=== PATIENT | female | born 1985 | race Two or more races ===

== ENCOUNTER 2017-10-09 12:48 | Emergency (ER) | payer OTHER ==
[2017-10-09 12:52] VITALS: PULSE 80; TEMP 98.3; BMI 23.3
--- NOTE | 2017-10-09 13:17 | PDOC ---
History of Present Illness - General Chief Complaint: Pain Stated Complaint: ABD PAIN Time Seen by Provider: 10/09/17 13:16 - History of Present Illness Initial Comments: 31 year old healthy female with history of caesarean section x2 presenting with lower abdominal pain and bloating for the past day. She states that she was sitting yesterday in her home and felt an achy lower abdominal/ pelvic pain that was occasionally sharp in nature and worse with movement and walking but improved after passing gas. She also states that her bloating improves with flatulation. Denies nausea, vomiting, diarrhea, constipaton, urinary symptoms, dyspareunia, cough, fever, chills, annorexia, delayed menses, or other sick symptoms. Her LMP was 09/18/17 and she is on OCPs. She saw her wool scourer in June and had a negative pap smear. Agustin siegel have history of fibroids or ovarian pathology. Her wool scourer is Eileen Danielle. 10/09/17 13:37 Past History - Past Medical History Allergies/Adverse Reactions: Allergies Allergy/AdvReac Type Severity Reaction Status Date / Time No Known Allergies Allergy Verified 10/09/17 12:52 Home Medications: Ambulatory Orders Norgestimate-Ethinyl Estradiol [Tri-Sprintec Tablet] 1 each PO DAILY 10/09/17 COPD: No - Family Disease History Family Disease History: Diabetes: Grandparents, Heart Disease: Grandparents - Reproductive History Is Patient Now?: No (#): 2 Para: 1 - Suicide/Smoking/Psychosocial Hx Smoking History: Never smoked Hx Alcohol Use: No Drug/Substance Use Hx: No Substance Use Type: None Hx Substance Use Treatment: No Review of Systems - Review of Systems Constitutional: No: Chills, Diaphoresis, Fever, Weakness HEENTM: No: Blurred Vision Respiratory: No: Cough, Shortness of Breath, Wheezing Cardiac (ROS): No: Chest Pain ABD/GI: No: Constipated, Diarrhea, Nausea, Vomiting : No: Burning, Dysuria Musculoskeletal: No: Back Pain Integumentary: No: Change in Color, Erythema Neurological: No: Headache *Physical Exam - Vital Signs Last Vital Signs Temp Pulse Resp BP Pulse Ox 98.3 F 80 20 122/72 99 10/09/17 12:50 10/09/17 12:50 10/09/17 12:50 10/09/17 12:50 10/09/17 12:50 - Physical Exam General Appearance: Yes: Appropriately Dressed. No: Apparent Distress HEENT: positive: EOMI, ISH, Normal Voice Neck: positive: Trachea midline, Normal Thyroid, Supple. negative: Tender, Rigid Respiratory/Chest: positive: Lungs Clear, Normal Breath Sounds. negative: Chest Tender, Respiratory Distress, Accessory Muscle Use Cardiovascular: positive: Regular Rhythm, Regular Rate Gastrointestinal/Abdominal: positive: Normal Bowel Sounds, Tender (RLQ tendeneress to palpation and LUQ tenderness to palpation. No pelvic tenderness to palpation), Flat, Soft Musculoskeletal: positive: Normal Inspection Extremity: positive: Normal Capillary Refill, Normal Inspection, Normal Range of Motion. negative: Tender Integumentary: positive: Normal Color, Dry, Warm Neurologic: positive: Fully Oriented, Alert, Normal Mood/Affect, Normal Response ED Treatment Course - LABORATORY CBC & Chemistry Diagram: 10/09/17 13:44 10/09/17 13:44 Medical Decision Making - Medical Decision Making 31 year old previously healthy female presenting with RLQ tenderness to palpation without GI or urinary symptoms. Highest on the list is some gynecologic pathology including ovarian cyst or uterine lesion. Also of concern could be urinary infection or appendicitis given location of complaints and [place] geography but patient has no GI complaints and pain is not related to eating. Will get CBC, CMP, lipase, upreg, and transvaginal US + RLQ ultrasound to evaluate gyncologic anatomy and rule out appendicitis. 10/09/17 15:02 Labs WNL, pending Ultrasound but pain improved after Maalox and famotidine. 10/09/17 16:19 US negative and pain still improved. Will DC with GI follow up for IBS workup and pepcid two week prescription. 10/09/17 16:39 *DC/Admit/Observation/Transfer Diagnosis at time of Disposition: Abdominal pain Qualifiers: Abdominal location: right lower quadrant Qualified Code(s): R10.31 - Right lower quadrant pain - Discharge Dispostion Disposition: HOME Condition at time of disposition: Improved Admit: No - Referrals Referrals: Guillaume Vega MD [Staff Physician] - - Patient Instructions Printed Discharge Instructions: DI for Abdominal Pain-Adult Additional Instructions: We looked at your blood labs and took an ultrasound of your pelvis. There does not appear to be anything wrong with your appendix, ovaries, uterus. We believe you need to see a paid intern for IBS workup. Please follow up with Dr. Vega. You can use pepcid for your abdominal pain until you see your GI doctor. Please return if your abdominal pain gets worse, you get fevers, chills , or worsening symptoms. - Post Discharge Activity
[2017-10-09] MEDS ORDERED: MAG HYDROX/AL HYDROX/SIMETH 355 ML ORAL.SUSP PO ONE (13:27)
--- NOTE | 2017-10-09 13:28 | PDOC ---
Attending Attestation - HPI HPI: 10/09/17 13:58 The patient is a 31 year old female with a significant PMH of 2x C-sections who presents to the emergency department with pelvic and lower abdominal pain beginning approximately 3 days ago. The patient reports having previous episodes of lower abdominal pain. The patient denies any vaginal discharge or bleeding. The patient denies chest pain, shortness of breath, headache and dizziness. Denies fever, chills, nausea, vomit, diarrhea and constipation. Denies dysuria, frequency, urgency and hematuria. Allergies: NKA - Physicial Exam PE: 10/09/17 13:58 GENERAL: Awake, alert, and fully oriented, in no acute distress HEAD: No signs of trauma EYES: PERRLA, EOMI, sclera anicteric, conjunctiva clear ENT: Auricles normal inspection, hearing grossly normal, nares patent, oropharynx clear without exudates. Moist mucosa NECK: Normal ROM, supple, no lymphadenopathy, JVD, or masses LUNGS: Breath sounds equal, clear to auscultation bilaterally. No wheezes, and no crackles HEART: Regular rate and rhythm, normal S1 and S2, no murmurs, rubs or gallops ABDOMEN: Soft, nontender, normoactive bowel sounds. No guarding, no rebound. No masses PELVIC: (+) Left and right sided pelvic tenderness. EXTREMITIES: Normal range of motion, no edema. No clubbing or cyanosis. No cords, erythema, or tenderness NEUROLOGICAL: Cranial nerves II through XII grossly intact. Normal speech, normal gait SKIN: Warm, Dry, normal turgor, no rashes or lesions noted. <Dusty Armstrong - Last Filed: 10/09/17 14:00> - Resident Resident Name: Anitra Hatch - ED Attending Attestation I have performed the following: I have examined & evaluated the patient, The case was reviewed & discussed with the resident, I agree w/resident's findings & plan, Exceptions are as noted - Medical Decision Making 10/09/17 13:28 I, Dr. Kaitlin Stone, DO, attest that this document has been prepared under my direction and personally reviewed by me in its entirety. I further attest, that it accurately reflects all work, treatment, procedures and medical decision -making performed by me. 10/09/17 15:59 a/p: 31yo female with abd pain -lower pelvic pain on exam, but denies vaginal complaints -no Gi, , vaginal complaints other than pain -will check labs, pelvic u/s and appy ultrasound -plan discussed with the patient that she may need outpt follow up with GI -pt agrees with the plan. 10/09/17 16:00 unable to visualize appy no fevers no elevated wbc normal ovaries on ultrasound CMP pending 10/09/17 16:38 ultrasounds reviewed, no acute pathology, unable to visualize appendix but low risk for appendicitis. given close precautions. labs reviewed. normal labs. clean urine. pain improved with GI cocktail stable for d/c to home <Kaitlin Stone - Last Filed: 10/09/17 16:38>
[2017-10-09] MEDS ORDERED: ACETAMINOPHEN 325 MG TABLET (FP) PO ONE (13:31)
[2017-10-09] MEDS ORDERED: FAMOTIDINE IV 20 MG/12 ML VIAL IVPB ONE (13:31)
[2017-10-09 14:10] LABS: BASOPHIL 0.5 % (0-2.0); EOSINOPHIL 3.7 % (0-4.5); MCH 29.6 pg (25.7-33.7); MCHC 33.8 g/dl (32.0-36.0); MEAN CELL VOLUME 87.3 fl (80-96); MEAN PLT VOLUME 7.9 fl (7.5-11.1); PLATELET COUNT 291 K/MM3 (134-434); RDW 12.6 % (11.6-15.6)
[2017-10-09] MEDS ORDERED: MAG HYDROX/AL HYDROX/SIMETH 30 ML UNIT-DOSE CUP ONE (14:11)
[2017-10-09] MEDS ORDERED: ACETAMINOPHEN 325 MG TABLET (FP) ONE (14:11)
[2017-10-09] MEDS ORDERED: FAMOTIDINE 20 MG/50 ML IVPB 20 MG/50 ML MG IVPB ONE (14:11)
[2017-10-09 14:20] LABS: URINE APPEARANCE CLEAR; URINE BILIRUBIN NEGATIVE (NEGATIVE); URINE BLOOD NEGATIVE (NEGATIVE); URINE COLOR STRAW; URINE GLUCOSE (UA) NEGATIVE (NEGATIVE); URINE KETONE NEGATIVE (NEGATIVE); URINE LEUK ESTERASE NEGATIVE (NEGATIVE); URINE NITRITE NEGATIVE (NEGATIVE); URINE PROTEIN NEGATIVE (NEGATIVE); URINE UROBILINOGEN NEGATIVE mg/dL (0.2-1.0)
[2017-10-09 16:02] LABS: ALBUMIN 3.9 g/dl (3.4-5.0); ALK PHOS 66 U/L (45-117); ANION GAP 10 (8-16); BILIRUBIN,TOTAL 0.2 mg/dL (0.2-1.0); CO2 25 mmol/L (21-32); CREATININE 0.5 mg/dL (0.55-1.02); GLUCOSE,RANDOM 129 mg/dL (74-106); SGOT/AST 16 U/L (15-37); SGPT/ALT 20 U/L (12-78); TOT PROT 7.2 g/dl (6.4-8.2)
[2017-10-09 17:11] VITALS: BP 120/70
[2017-10-09 18:40] LABS: URINE LEUK ESTERASE Negative (NEGATIVE)
== END 2017-10-09 17:12 | disposition home or self-care (01) ==
LOC: JER 12:48
PROC: 3E033GC Introduction of Other Therapeutic Substance into Peripheral Vein, Percutaneous Approach (ICD-10-PCS; principal; 2017-10-09)
DX: R10.31 Right lower quadrant pain (principal)
CPT/HCPCS: 36415; 76830-TC; 76856-TC; 80053; 81003; 83690; 84703; 85025; 99284-25

== ENCOUNTER 2017-11-06 21:22 | Emergency (ER) | payer OTHER ==
[2017-11-06 22:16] VITALS: BP 128/81; PULSE 78; TEMP 98; BMI 23.1
== END 2017-11-06 22:26 | disposition left against medical advice (07) ==
LOC: JER 21:22
DX: Z53.21 Procedure and treatment not carried out due to patient leaving prior to being seen by health care provider (principal)
CPT/HCPCS: 99281-25

== ENCOUNTER 2018-10-15 08:40 | Emergency (ER) | payer OTHER ==
[2018-10-15 08:59] VITALS: BMI 23.3
--- NOTE | 2018-10-15 09:13 | PDOC ---
*Physical Exam - Vital Signs Last Vital Signs Temp Pulse Resp BP Pulse Ox 98.2 F 109 H 16 96/68 100 10/15/18 08:57 10/15/18 08:57 10/15/18 08:57 10/15/18 08:57 10/15/18 08:57 ED Treatment Course - LABORATORY CBC & Chemistry Diagram: 10/15/18 09:50 10/15/18 09:50 Medical Decision Making - Medical Decision Making 10/15/18 09:13 Pt seen by Midlevel Provider under my direct supervision Ancillary studies reviewed I agree with plan as outlined by Midlevel Provider *DC/Admit/Observation/Transfer Diagnosis at time of Disposition: Abdominal pain, Nausea - Discharge Dispostion Disposition: HOME Condition at time of disposition: Improved - Prescriptions Prescriptions: Ondansetron HCl [Zofran] 4 mg PO TID PRN #12 tablet PRN Reason: Nausea And/Or Vomiting - Referrals - Patient Instructions Printed Discharge Instructions: DI for Abdominal Pain-Adult Additional Instructions: Please take Zofran as needed for nausea. If your symptoms of abdominal pain, fever, chills , or inability to tolerate by mouth occurs, please return to ED immediately. Otherwise eat a bland diet for the next 72 hours. - Post Discharge Activity
[2018-10-15] MEDS ORDERED: ONDANSETRON 4 MG/2 ML VIAL IVPUSH ONE (09:19)
[2018-10-15] MEDS ORDERED: SODIUM CHLORIDE 1,000 ML IV STA (09:19)
[2018-10-15] MEDS ORDERED: KETOROLAC TROMETHAMINE 30 MG/1 ML VIAL IVPUSH ONE (09:19)
[2018-10-15] MEDS ORDERED: ONDANSETRON 4 MG/2 ML VIAL ONE (09:39)
[2018-10-15] MEDS ORDERED: KETOROLAC TROMETHAMINE 30 MG/1 ML VIAL ONE (09:39)
--- NOTE | 2018-10-15 10:06 | PDOC ---
History of Present Illness - General Chief Complaint: Nausea Stated Complaint: ABD PAIN Time Seen by Provider: 10/15/18 09:07 History Source: Patient Exam Limitations: No Limitations - History of Present Illness Travel History: No Initial Comments: 10/15/18 10:00 32-year-old female presents to ED with complaints of nausea vomiting diarrhea along with lower abdominal cramping for the past 2 days. Patient states no recent travel or recent illness and states menstrual cycle is regular. Patient has no urinary complaints and states has been unable to tolerate anything by mouth including liquids. Patient states symptoms began Saturday night after having packaged salad mix which was also shared with her who does not complain of similar symptoms. Timing/Duration: reports: constant Quality: reports: mild, cramping Abdominal Pain Onset Location: reports: RLQ, LLQ Pain Radiation: reports: no radiation Activities at Onset: reports: eating Aggravating Factors: improves with: None Alleviating Factors: improves with: None Past History - Travel Traveled outside of the country in the last 30 days: No Close contact w/someone who was outside of country & ill: No - Past Medical History Allergies/Adverse Reactions: Allergies Allergy/AdvReac Type Severity Reaction Status Date / Time No Known Allergies Allergy Verified 10/15/18 08:55 Home Medications: Ambulatory Orders NK [No Known Home Medication] 10/15/18 COPD: No - Family Disease History Family Disease History: Diabetes: Grandparents, Heart Disease: Grandparents - Reproductive History (#): 2 Para: 1 - Suicide/Smoking/Psychosocial Hx Smoking History: Never smoked Have you smoked in the past 12 months: No Information on smoking cessation initiated: No Hx Alcohol Use: No Drug/Substance Use Hx: No Substance Use Type: None Hx Substance Use Treatment: No Patient Lives Alone: No Lives with/in: spouse/SO Abd/GI Specific PMHX - Complaint Specific PMHX Colitis: No GERD: No Review of Systems - Review of Systems Able to Perform ROS?: Yes Constitutional: Yes: Malaise, Weakness HEENTM: No: Symptoms Reported Respiratory: No: Symptoms reported Cardiac (ROS): No: Symptoms Reported ABD/GI: Yes: Diarrhea, Nausea, Poor Appetite, Poor Fluid Intake, Vomiting, Abdominal cramping : No: Symptoms Reported Musculoskeletal: No: Symptoms Reported Integumentary: No: Symptoms Reported Neurological: No: Symptoms reported *Physical Exam - Vital Signs Last Vital Signs Temp Pulse Resp BP Pulse Ox 98.2 F 109 H 16 96/68 100 10/15/18 08:57 10/15/18 08:57 10/15/18 08:57 10/15/18 08:57 10/15/18 08:57 - Physical Exam General Appearance: Yes: Nourished, Appropriately Dressed. No: Apparent Distress HEENT: positive: EOMI, ISH, TMs Normal, Pharynx Normal (dry). negative: Pale Conjunctivae Neck: positive: Supple Respiratory/Chest: positive: Lungs Clear, Normal Breath Sounds. negative: Respiratory Distress, Accessory Muscle Use Cardiovascular: positive: Regular Rhythm, Tachycardia. negative: Murmur Gastrointestinal/Abdominal: positive: Normal Bowel Sounds, Soft, Tenderness ( moderate left lower quadrant, mild right lower quadrant). negative: Distended , Guarding, Rebound Musculoskeletal: negative: CVA Tenderness Extremity: positive: Normal Capillary Refill. negative: Pedal Edema Integumentary: positive: Normal Color, Warm, Moist Neurologic: positive: Normal Mood/Affect, Motor Strength 5/5 (ambulatory) Moderate Sedation - Procedure Monitoring Vital Signs: Procedure Monitoring Vital Signs Temperature 98.2 F 10/15/18 08:57 Pulse Rate 109 H 10/15/18 08:57 Respiratory Rate 16 10/15/18 08:57 Blood Pressure 96/68 10/15/18 08:57 O2 Sat by Pulse Oximetry (%) 100 10/15/18 08:57 ED Treatment Course - LABORATORY CBC & Chemistry Diagram: 10/15/18 09:50 10/15/18 09:50 Medical Decision Making - Medical Decision Making 10/15/18 10:01 Chief complaint: Nausea vomiting diarrhea weakness poor appetite and abdominal cramping for the past 2 days. Exam: Appears dehydrated tachycardic left lower quadrant tenderness Plan: Urine urine , IV fluids, antiemetics, Toradol and labs including lipase and lactic acid 10/15/18 12:17 Laboratory Tests 10/15/18 10/15/18 10/15/18 09:50 09:50 09:50 WBC 10.8 H Hgb 13.3 Hct 37.5 Neutrophils % 84.0 H D Sodium 135 L Potassium 3.5 Chloride 101 Carbon Dioxide 23 Anion Gap 11 BUN 9 Creatinine 0.6 Creat Clearance w eGFR > 60 Random Glucose 87 Lactic Acid Calcium 8.3 L Total Bilirubin 0.6 AST 21 ALT 30 Urine Blood 2+ H Urine WBC (Auto) None Urine RBC (Auto) 5 Urine HCG, Qual Negative Influenza A (Rapid) Influenza B (Rapid) 10/15/18 10/15/18 09:50 09:50 WBC Hgb Hct Neutrophils % Sodium Potassium Chloride Carbon Dioxide Anion Gap BUN Creatinine Creat Clearance w eGFR Random Glucose Lactic Acid 1.0 Calcium Total Bilirubin AST ALT Urine Blood Urine WBC (Auto) Urine RBC (Auto) Urine HCG, Qual Influenza A (Rapid) Negative Influenza B (Rapid) Negative Patient ordered for abdominal CT with by mouth and IV contrast. Patient states is not currently menstruating and had her last menses September 23. 10/15/18 15:[address] shows no evidence of diverticulitis or acute pathology. patient states improvement of nausea and abdominal pain. Patient be discharged home with recommendations to follow bland diet. *DC/Admit/Observation/Transfer Diagnosis at time of Disposition: Abdominal pain, Nausea - Discharge Dispostion Disposition: HOME Condition at time of disposition: Improved - Referrals - Patient Instructions Printed Discharge Instructions: DI for Abdominal Pain-Adult Additional Instructions: Please take Zofran as needed for nausea. If your symptoms of abdominal pain, fever, chills , or inability to tolerate by mouth occurs, please return to ED immediately. Otherwise eat a bland diet for the next 72 hours. - Post Discharge Activity
[2018-10-15 11:11] LABS: BASO % 0.1 % (0-2.0); EOS % 0.1 % (0-4.5); HEMATOCRIT 37.5 % (32.4-45.2); HEMOGLOBIN 13.3 GM/dL (10.7-15.3); MCH 30.7 pg (25.7-33.7); MCHC 35.3 g/dl (32.0-36.0); MEAN CELL VOLUME 86.7 fl (80-96); MEAN PLT VOLUME 8.3 fl (7.5-11.1); MONO % 5.8 % (3.8-10.2); PLATELET COUNT 259 K/MM3 (134-434); RBC 4.32 M/mm3 (3.60-5.2); RDW 12.5 % (11.6-15.6); WHITE BLOOD COUNT 10.8 K/mm3 (4.0-10.0)
[2018-10-15 11:20] LABS: HCG,QUALITATIVE URINE Negative
[2018-10-15 11:32] LABS: URINE APPEARANCE TURBID; URINE BILIRUBIN NEGATIVE (<2.0 mg/dL); URINE COLOR YELLOW; URINE GLUCOSE (UA) NEGATIVE (NEGATIVE); URINE KETONE NEGATIVE (NEGATIVE); URINE LEUK ESTERASE NEGATIVE (NEGATIVE); URINE NITRITE NEGATIVE (NEGATIVE); URINE PROTEIN NEGATIVE (NEGATIVE); URINE UROBILINOGEN NEGATIVE mg/dL (0.2-1.0)
[2018-10-15 11:36] LABS: ALK PHOS 85 U/L (45-117); ANION GAP 11 MMOL/L (8-16); BILIRUBIN,TOTAL 0.6 mg/dL (0.2-1); BLOOD UREA NITROGEN 9 mg/dL (7-18); CALCIUM 8.3 mg/dL (8.5-10.1); CHLORIDE 101 mmol/L (98-107); CO2 23 mmol/L (21-32); CREATININE 0.6 mg/dL (0.55-1.3); GLUCOSE,RANDOM 87 mg/dL (74-106); LIPASE 76 U/L (73-393); MAGNESIUM 1.8 mg/dL (1.8-2.4); POTASSIUM 3.5 mmol/L (3.5-5.1); SGOT/AST 21 U/L (15-37); SGPT/ALT 30 U/L (13-61); SODIUM 135 mmol/L (136-145); TOT PROT 7.3 g/dl (6.4-8.2)
[2018-10-15 11:44] LABS: EPI CELLS FEW /HPF (FEW); URINE MUCUS MANY
[2018-10-15 16:19] VITALS: BP 150/78; PULSE 72; TEMP 98
== END 2018-10-15 16:19 | disposition home or self-care (01) ==
LOC: JER 08:40
PROC: 3E033GC Introduction of Other Therapeutic Substance into Peripheral Vein, Percutaneous Approach (ICD-10-PCS; principal; 2018-10-15)
PROC: 3E0333Z Introduction of Anti-inflammatory into Peripheral Vein, Percutaneous Approach (ICD-10-PCS; 2018-10-15)
DX: R10.84 Generalized abdominal pain (principal); R11.2 Nausea with vomiting, unspecified
CPT/HCPCS: 36415; 74177-TC; 80053; 81003; 81015; 83605; 83690; 83735; 84703; 85025; 87804; 96374; 96375; 99282-25; J7030; Q9967